=== PATIENT | male | born 1950 | race African-American/Black ===

== ENCOUNTER → 2019-04-07 | Outpatient (CLI) | payer MEDICARE, BC ==
[~2019-04-07] MED LIST: ALTACE10 MG PO; ASPIR-LOW81 MG PO; COREG CR80 MG PO; FISH OIL CONC1000 MG PO; GARLIC SUPPLEM300 MG PO; LIPITOR 10MG10 MG PO; PREVACID 30MG30 MG PO
== END ==
LOC: COL.RAD 08:01
DX: R22.31 Localized swelling, mass and lump, right upper limb (principal)

== ENCOUNTER 2019-05-21 09:00 | Outpatient (RCR) | payer MEDICARE, BC | END 2019-07-17 | disposition still patient (30) | LOC: WSPT | DX: M75.101 Unspecified rotator cuff tear or rupture of right shoulder, not specified as traumatic (principal); Z90.49 Acquired absence of other specified parts of digestive tract; Z90.89 Acquired absence of other organs; Z96.643 Presence of artificial hip joint, bilateral ==